=== PATIENT | male | born 1960 | race Caucasian/White ===

== ENCOUNTER 2017-11-21 13:20 | Emergency (ER) | payer OTHER ==
[2017-11-21 13:28] VITALS: BP 156/107; PULSE 110; RESP 20; TEMP 97.5; O2SAT 99
--- NOTE | 2017-11-21 13:51 | PD ---
HPI Chief Complaint: Injury Time Seen by Provider: 13:30 Travel History International Travel<30 days: No Contact w/Intl Traveler<30days: No Traveled to known affect area: No History of Present Illness HPI Patient 57-year-old male presents emergency department for evaluation of low back pain radiating down his right leg. Patient states he had a slip and fall landing on his bottom. He states pain for the past day, low back radiating down his right leg, context as a fall. Denies any saddle anesthesia denies any difficulty urinating. He is able to ambulate albeit very gingerly. [facility] Past Medical History Narrative Medical Chronic pain. Past Surgical History Narrative Surgical Denies Social History Alcohol Use: Yes Tobacco Use: Yes Substance Use: No Allergies-Medications (Allergen,Severity, Reaction): Coded Allergies: No Known Allergies (Unverified , 11/21/17) Reported Meds & Prescriptions Reported Meds & Active Scripts Active Flexeril (Cyclobenzaprine HCl) 10 Mg Tab 10 Mg PO TID Ultram (Tramadol HCl) 50 Mg Tab 50 Mg PO Q6H PRN Methadone Physical Exam Narrative GENERAL: Well-nourished, well-developed patient. Appears uncomfortable SKIN: Focused skin assessment warm/dry. HEAD: Normocephalic. EYES: No scleral icterus. No injection or drainage. NECK: Supple, trachea midline. No JVD or lymphadenopathy. CARDIOVASCULAR: Regular rate and rhythm without murmurs, gallops, or rubs. RESPIRATORY: Breath sounds equal bilaterally. No accessory muscle use. GASTROINTESTINAL: Abdomen soft, non-tender, nondistended. MUSCULOSKELETAL: No cyanosis, or edema. There is no midline CT or L-spine tenderness, pulses motor and sensory intact distally in all 4 extremities, patient has 5 out of 5 strength in dorsi and plantar flexion, 5 out of 5 strength in knee extension and flexion, ambulates with antalgic gait. Pelvis stable, no tenderness at the hip BACK: Nontender without obvious deformity. No CVA tenderness. Data Data Last Documented VS Vital Signs Date Time Temp Pulse Resp B/P (MAP) Pulse Ox O2 Delivery O2 Flow Rate FiO2 11/21/17 14:46 16 11/21/17 13:28 97.5 110 156/107 (123) [address] Lumb Spine W/O Contrast (11/21/17 ) Hip, Uni(Ap&Lat) W Ap Pelvis (11/21/17 ) Morphine Inj (Morphine Inj) (11/21/17 14:15) Morphine Inj (Morphine Inj) (11/21/17 14:15) Ed Discharge Order (11/21/17 15:34) MDM Medical Decision Making Medical Screen Exam Complete: Yes Emergency Medical Condition: Yes Differential Diagnosis Compression fracture, pathologic fracture, cauda equina syndrome unlikely, sciatica, degenerative disc disease per Narrative Course Patient room to the emergency department, CAT scan imaging was low back obtained show no abnormality, pelvis and hip as below. Discussed symptomatic management follow-up with her primary care physician and return to ED criteria. Last 24 [address] Impressions [address] 11/21/17 0000 Signed Impressions: Service Date/Time: Tuesday, November 21, 2017 14:20 - CONCLUSION: No acute bony injury in the lumbosacral spine Aron Driver MD Hip and Pelvis X-Ray 11/21/17 0000 Signed Impressions: Service Date/Time: Tuesday, November 21, 2017 14:29 - CONCLUSION: Unremarkable examination of the right hip. Aron Driver MD Diagnosis Primary Impression: Low back pain Qualified Codes: M54.5 - Low back pain Referrals: [facility] Med/Other Pt SpecificInfo: Prescription(s) given Scripts Cyclobenzaprine (Flexeril) 10 Mg Tab 10 MG PO TID for Muscle Spasm, #20 TAB 0 Refills Prov: Yoav Rincon MD 11/21/17 Tramadol (Ultram) 50 Mg Tab 50 MG PO Q6H Y for PAIN, #10 TAB 0 Refills Prov: Yoav Rincon MD 11/21/17 Disposition: 01 DISCHARGE HOME Condition: Stable Yoav Rincon MD Nov 21, 2017 13:51
[2017-11-21] MEDS ORDERED: MORPHINE SULFATE 8 MG/ML INJ IM ONE ×2 (14:15)
[2017-11-21 14:46] VITALS: RESP 16
--- NOTE | 2017-11-21 14:51 | RADRPT ---
EXAM DATE/TIME: 11/21/2017 14:20 [facility] COMPARISON: No previous studies available for comparison. INDICATIONS : Patient slipped and fell, pelvic pain. RADIATION DOSE: 24.33 CTDIvol (mGy) MEDICAL HISTORY : None SURGICAL HISTORY : None. ENCOUNTER: Initial ACUITY: 1 day PAIN SCALE: 10/10 LOCATION: pelvis TECHNIQUE: Volumetric scanning of the lumbar spine was performed. Multiplanar reconstructions in the sagittal, coronal and oblique axial planes were performed. Using automated exposure control and adjustment of the mA and/or kV according to patient size, radiation dose was kept as low as reasonably achievable t o obtain optimal diagnostic quality images. DICOM format image data is available electronically for review and comparison. FINDINGS: The lumbar spine alignment is satisfactory. There is no evidence of fracture. No bony canal or forami nal compromise identified. There is mild degenerative change with small predominantly ventral endplat e osteophytes most conspicuous at L2-3. There is slight annular disc bulge and minimal broad superimp osed dorsal protrusion L2-3, L3-4, L4-5 and L5-S1 levels. There is no evidence of paraspinal hematoma . CONCLUSION: No acute bony injury in the lumbosacral spine Aron Driver MD on November 21, 2017 at 14:40 Board Certified Radiologist. This report was verified electronically.
--- NOTE | 2017-11-21 15:05 | RADRPT ---
EXAM DATE/TIME: 11/21/2017 14:29 [facility] COMPARISON: No previous studies available for comparison. INDICATIONS : Pain in right hip. Fell 1 day ago. MEDICAL HISTORY : None. SURGICAL HISTORY : None. ENCOUNTER: Initial ACUITY: 2 days PAIN SCORE: 7/10 LOCATION: Right pelvis FINDINGS: Examination of the right hip was performed with AP Pelvis. The primary and secondary trabecular taryn sofia of the femoral neck is intact. The hip joint is of normal width without significant sclerosis or bony hypertrophy. The acetabulum is grossly intact. CONCLUSION: Unremarkable examination of the right hip. Aron Driver MD on November 21, 2017 at 15:03 Board Certified Radiologist. This report was verified electronically.
[2017-11-21] MEDS ORDERED: TRAM50 PO (15:34)
[2017-11-21] MEDS ORDERED: CYCL10TA PO (15:34)
== END 2017-11-21 15:58 | disposition home or self-care (01) ==
LOC: NEPD 13:20
DX: M54.5 Low back pain (principal); Z72.0 Tobacco use
CPT/HCPCS: 72131; 73502; 96372; 99284; J2270